=== PATIENT | male | born 2000 | race Caucasian/White ===

== ENCOUNTER 2025-03-15 19:21 | Emergency (ER) | payer BC, OTHER ==
[2025-03-15 20:00] VITALS: BP 131/87; PULSE 78; RESP 16; TEMP 98.8; BMI 23.6
== END 2025-03-15 21:12 | disposition home or self-care (01) ==
LOC: JERFT 19:21
PROC: F09Z3XZ Cerumen Management Treatment using Cerumen Management Equipment (ICD-10-PCS; principal; 2025-03-15)
DX: H61.23 Impacted cerumen, bilateral (principal); H92.02 Otalgia, left ear
CPT/HCPCS: 99283-25